=== PATIENT | male | born 1955 | race Caucasian/White ===

== ENCOUNTER 2016-08-12 06:06 | Emergency (ER) | payer BC, OTHER ==
[~2016-08-12] VITALS: Ht 172.7 cm; Wt 92.0 kg
[~2016-08-12 06:06] MED LIST: AMLO-512 PO; PARI1CAP PO
[2016-08-12] MEDS ORDERED: LOSA50TA37 PO (06:13)
[2016-08-12 06:22] LABS: GLUCOSE,POINT OF CARE 100 MG/DL (70-110)
[2016-08-12 06:33] VITALS: BP 150/90
== END 2016-08-12 06:46 | disposition home or self-care (01) ==
LOC: EMS 06:07
DX: S90.424A Blister (nonthermal), right lesser toe(s), initial encounter (principal); I12.0 Hypertensive chronic kidney disease with stage 5 chronic kidney disease or end stage renal disease; E11.22 Type 2 diabetes mellitus with diabetic chronic kidney disease; N18.6 End stage renal disease; Z99.2 Dependence on renal dialysis; X58.XXXA Exposure to other specified factors, initial encounter; Y93.89 Activity, other specified; Y92.89 Other specified places as the place of occurrence of the external cause; Y99.8 Other external cause status
CPT/HCPCS: 82948; 82962; 99282

== ENCOUNTER 2017-02-01 05:28 | Inpatient (IN) | payer BC, OTHER ==
[~2017-02-01] VITALS: Ht 167.6 cm; Wt 83.5 kg
[~2017-02-01 05:28] MED LIST changes: -AMLO-512 PO; +LOSA50TA37 PO; -PARI1CAP PO
[2017-02-01 05:48] LABS: GLUCOSE,POINT OF CARE 93 MG/DL (70-110)
[2017-02-01] MEDS ORDERED: NITROGLYCERIN 0.4 MG SUBLINGUAL TABLET #25 SL ONE (06:00)
[2017-02-01] MEDS ORDERED: ASPIRIN 325 MG TABLET PO ONE (06:00)
[2017-02-01 06:18] LABS: BASOPHILS # (AUTO) 0.08 K/uL (0.00-0.20); BASOPHILS % (AUTO) 0.9 % (0.0-2.0); EOSINOPHILS # (AUTO) 0.23 K/uL (0.00-0.70); EOSINOPHILS % (AUTO) 2.53 % (1.0-6.0); HEMATOCRIT 28.2 % (41-53); HEMOGLOBIN 9.4 g/dL (13.5-17.5); LYMPHOCYTES # (AUTO) 1.3 K/uL (1.0-4.8); LYMPHOCYTES % (AUTO) 13.5 % (22.0-44.0); MEAN CORPUSCULAR HEMOGLOBIN 29.7 pg (26.0-34.0); MEAN CORPUSCULAR HGB CONC 33.3 G/dL (31.0-37.0); MEAN CORPUSCULAR VOLUME 89 fL (80-100); MONOCYTES # (AUTO) 0.5 K/uL (0.1-1.0); MONOCYTES % (AUTO) 5.6 % (2.0-9.0); NEUTROPHILS # (AUTO) 7.2 K/uL (1.8-7.7); NEUTROPHILS % (AUTO) 77.5 % (40.0-70.0); PLATELET COUNT (AUTO) 206 K/uL (150-450); RED BLOOD CELL COUNT(AUTO) 3.17 MIL/uL (4.50-5.90); RED CELL DISTRIBUTION WIDTH 15.8 % (11.5-14.5); WHITE BLOOD COUNT (AUTO) 9.2 K/uL (4.5-11.0)
[2017-02-01 06:25] LABS: INR 1.1 (0.9-1.1); PROTHROMBIN TIME 11.2 SEC (9.4-11.6)
[2017-02-01] MEDS ORDERED: HEPARIN SODIUM,PORCINE 5,000 UNITS/ML VIAL IVP ONE (06:30)
[2017-02-01] MEDS ORDERED: NITROGLYCERIN 2% (1 GM=INCH) PACKET TP ONE (06:30)
[2017-02-01] MEDS ORDERED: HEPARIN SODIUM 25000 UNITS/D5W 250 ML IV PRN (06:30)
[2017-02-01] MEDS ORDERED: HEPARIN SODIUM,PORCINE 5,000 UNITS/ML VIAL IVP PRN ×2 (06:30)
[2017-02-01 06:51] LABS: ALANINE AMINOTRANSFERASE 17 U/L (12-78); ALBUMIN 3.4 g/dL (3.4-5.0); ANION GAP 23 mmol/L (8-16); ASPARTATE AMINOTRANSFERASE 13 U/L (15-37); BILIRUBIN,TOTAL 0.4 mg/dL (0.1-1.0); CALCIUM, TOTAL 7.4 mg/dL (8.8-10.5); CARBON DIOXIDE 18 mmol/L (22-29); CHLORIDE 99 mmol/L (98-107); CREATINE KINASE MB 3.3 ng/mL (0-5); CREATINE KINASE, TOTAL 233 U/L (39-308); CREATININE 19.92 mg/dL (0.60-1.30); GLOMERULAR FILTR. RATE CALC 2 mL/min (>60); POTASSIUM 4.9 mmol/L (3.5-5.1); SODIUM SERUM 140 mmol/L (136-145); TOTAL PROTEIN, SERUM 8.3 g/dL (6.4-8.2)
[2017-02-01 06:55] LABS: UREA NITROGEN, BLOOD 121 mg/dL (7-18)
[2017-02-01] MEDS ORDERED: AZITHROMYCIN 500 MG/NS 250 ML IV ONE (07:15)
[2017-02-01] MEDS ORDERED: CefTRIAXone 1 GM/DEXTROSE 50 ML IV ONE (07:15)
[2017-02-01] MEDS ORDERED: ONDANSETRON HCL 4 MG/2 ML VIAL IVP PRN ×2 (07:45→11:30)
[2017-02-01] MEDS ORDERED: ACETAMINOPHEN 325 MG TABLET PO PRN ×2 (07:45→11:30)
[2017-02-01] MEDS ORDERED: OXYGEN THERAPY IH SCH (08:00)
[2017-02-01 09:34] VITALS: BP 158/82
[2017-02-01] MEDS ORDERED: MANNITOL 25%-12.5 GM/50 ML VIAL IVP PRN (10:15)
[2017-02-01] MEDS ORDERED: PNEUMOCOCCAL VACCINE POLYVALENT 0.5 ML VIAL [PPSV23] IM ONE (10:30)
[2017-02-01] MEDS ORDERED: INFLUENZA VIRUS VACCINE QVS 2017-18 (3YR+)/PF 60 MCG/0.5 ML SYRINGE IM ONE (10:30)
[2017-02-01] MEDS ORDERED: MORPHINE SULFATE 2 MG/ML SYRINGE IVP PRN (11:30)
[2017-02-01] MEDS ORDERED: HYDROCODONE/ACETAMINOPHEN 5-325 MG TABLET PO PRN (11:30)
[2017-02-01] MEDS ORDERED: BISACODYL 10 MG RECTAL RECTAL SUPPOSITORY PR PRN (11:30)
[2017-02-01] MEDS ORDERED: ZOLPIDEM TARTRATE 5 MG TABLET PO PRN (11:30)
[2017-02-01] MEDS ORDERED: MAGNESIUM HYDROXIDE SUSPENSION 30 ML UDCUP PO PRN (11:30)
[2017-02-01 12:30] LABS: ALBUMIN 3.2 g/dL (3.4-5.0); CALCIUM, TOTAL 7.1 mg/dL (8.8-10.5); CREATININE 19.79 mg/dL (0.60-1.30); PHOSPHORUS 8.5 mg/dL (2.5-4.9); POTASSIUM 5.6 mmol/L (3.5-5.1)
[2017-02-01] MEDS ORDERED: NITROGLYCERIN 50 MG/D5% WATER 0 ML ONE (13:48)
[2017-02-01] MEDS ORDERED: VERAPAMIL HCL 2.5 MG/ML 2 ML VIAL ONE (13:48)
[2017-02-01] MEDS ORDERED: HEPARIN SODIUM,PORCINE 1,000 UNITS/ML 10 ML VIAL ONE (13:48)
[2017-02-01] MEDS ORDERED: LIDOCAINE HCL/PF 1% 30 ML VIAL ONE (13:49)
[2017-02-01] MEDS ORDERED: IOHEXOL 300 MG/ML 150 ML VIAL ONE (13:49)
[2017-02-01] MEDS ORDERED: SODIUM BICARBONATE 50 MEQ/50 ML VIAL ONE (13:49)
[2017-02-01] MEDS ORDERED: IOHEXOL 300 MG/ML 100 ML VIAL ONE (13:49)
[2017-02-01] MEDS ORDERED: 0.9% SODIUM CHLORIDE 10 ML SYRINGE IVP ONE (13:49)
[2017-02-01] MEDS ORDERED: HEPARIN SODIUM 1000 UNITS/NS 1,000 ML ONE (13:49)
[2017-02-01 14:40] VITALS: BP 217/87
[2017-02-01] MEDS ORDERED: HydrALAZINE HCL 20 MG/ML VIAL ONE (14:52)
[2017-02-01] MEDS ORDERED: HEPARIN SODIUM 2,000 UNITS in HEPARIN SODIUM 1000 UNITS/NS 1,000 ML IARTER ONE (14:55)
[2017-02-01] MEDS ORDERED: SODIUM CHLORIDE 0.9% 500 ML IV ONE (14:55)
[2017-02-01] MEDS ORDERED: IOHEXOL 300 MG/ML 150 ML VIAL IARTER ONE (15:00)
[2017-02-01] MEDS ORDERED: LIDOCAINE 1% 30 ML/SOD BICARB 8.4% 4 ML SQ ONE (15:00)
[2017-02-01] MEDS ORDERED: HydrALAZINE HCL 20 MG/ML VIAL IVP ONE (15:00)
[2017-02-01 15:25] VITALS: BP 188/68
[2017-02-01 16:00] VITALS: BP 188/68
[2017-02-01] MEDS: NITROGLYCERIN 2% (1 GM=INCH) PACKET TP SCH (16:00)
[2017-02-01] MEDS: AmLODIPine BESYLATE 5 MG TABLET PO SCH (17:03)
[2017-02-01] MEDS ORDERED: SODIUM CHLORIDE 0.9% 1,000 ML IV ONE (19:30)
[2017-02-01 19:55] VITALS: BP 150/81
[2017-02-01] MEDS: CARVEDILOL 12.5 MG TABLET PO SCH (20:09)
[2017-02-01] MEDS: DOCUSATE SODIUM 100 MG CAPSULE PO SCH (20:09)
[2017-02-01 23:28] VITALS: BP 126/71
[2017-02-02] VITALS (7 sets, daily range): BP systolic 125–146; BP diastolic 71–76
[2017-02-02] MEDS: HEPARIN SODIUM,PORCINE 5,000 UNITS/ML VIAL SQ SCH ×4 (00:14→23:38)
[2017-02-02] MEDS: NITROGLYCERIN 2% (1 GM=INCH) PACKET TP SCH ×4 (00:15→23:38)
[2017-02-02 06:47] LABS: BASOPHILS % (AUTO) 0.8 % (0.0-2.0); EOSINOPHILS % (AUTO) 1.8 % (1.0-6.0); MEAN CORPUSCULAR HEMOGLOBIN 30.5 pg (26.0-34.0); MEAN CORPUSCULAR HGB CONC 34.4 G/dL (31.0-37.0); MEAN CORPUSCULAR VOLUME 89 fL (80-100); MONOCYTES # (AUTO) 0.5 K/uL (0.1-1.0); MONOCYTES % (AUTO) 8.2 % (2.0-9.0); NEUTROPHILS # (AUTO) 4.5 K/uL (1.8-7.7); NEUTROPHILS % (AUTO) 73.2 % (40.0-70.0); PLATELET COUNT (AUTO) 202 K/uL (150-450); RED BLOOD CELL COUNT(AUTO) 2.94 MIL/uL (4.50-5.90); RED CELL DISTRIBUTION WIDTH 15.7 % (11.5-14.5); WHITE BLOOD COUNT (AUTO) 6.1 K/uL (4.5-11.0)
[2017-02-02] MEDS ORDERED: SODIUM CHLORIDE 0.9% 1,000 ML IV ONE (07:21)
[2017-02-02 07:45] LABS: CALCIUM, TOTAL 7.4 mg/dL (8.8-10.5); CHOL/HDL RATIO 4.8 (4.2-7.3); CREATININE 13.32 mg/dL (0.60-1.30)
[2017-02-02] MEDS: PANTOPRAZOLE SODIUM 40 MG DR TABLET PO SCH (10:57)
[2017-02-02] MEDS: CARVEDILOL 12.5 MG TABLET PO SCH ×2 (10:58→21:04)
[2017-02-02] MEDS: ASPIRIN 81 MG CHEWABLE TABLET PO SCH (10:58)
[2017-02-02] MEDS: EPOETIN ALFA 10,000 UNITS/ML VIAL SQ SCH (10:59)
[2017-02-02] MEDS: DOCUSATE SODIUM 100 MG CAPSULE PO SCH ×2 (11:10→21:04)
[2017-02-02] MEDS: AmLODIPine BESYLATE 5 MG TABLET PO SCH (14:45)
[2017-02-03 04:48] VITALS: BP 121/65
[2017-02-03 06:27] LABS: BASOPHILS % (AUTO) 0.9 % (0.0-2.0); EOSINOPHILS % (AUTO) 3.7 % (1.0-6.0); HEMATOCRIT 26.8 % (41-53); HEMOGLOBIN 9.2 g/dL (13.5-17.5); LYMPHOCYTES # (AUTO) 1.4 K/uL (1.0-4.8); LYMPHOCYTES % (AUTO) 23.3 % (22.0-44.0); MEAN CORPUSCULAR HEMOGLOBIN 30.8 pg (26.0-34.0); MEAN CORPUSCULAR HGB CONC 34.4 G/dL (31.0-37.0); MEAN CORPUSCULAR VOLUME 90 fL (80-100); MONOCYTES # (AUTO) 0.7 K/uL (0.1-1.0); MONOCYTES % (AUTO) 11.7 % (2.0-9.0); NEUTROPHILS # (AUTO) 3.7 K/uL (1.8-7.7); NEUTROPHILS % (AUTO) 60.4 % (40.0-70.0); PLATELET COUNT (AUTO) 208 K/uL (150-450); RED BLOOD CELL COUNT(AUTO) 2.99 MIL/uL (4.50-5.90); RED CELL DISTRIBUTION WIDTH 15.9 % (11.5-14.5); WHITE BLOOD COUNT (AUTO) 6.1 K/uL (4.5-11.0)
[2017-02-03 06:50] LABS: CALCIUM, TOTAL 7.9 mg/dL (8.8-10.5); CREATININE 10.19 mg/dL (0.60-1.30); POTASSIUM 4.6 mmol/L (3.5-5.1)
[2017-02-03 07:24] VITALS: BP_SYST 116; BP_SYST 148; BP_DIAS 65; BP_DIAS 76
[2017-02-03] MEDS: CARVEDILOL 12.5 MG TABLET PO SCH ×2 (08:26→21:30)
[2017-02-03] MEDS: HEPARIN SODIUM,PORCINE 5,000 UNITS/ML VIAL SQ SCH ×3 (08:26→23:46)
[2017-02-03] MEDS: ASPIRIN 81 MG CHEWABLE TABLET PO SCH (08:26)
[2017-02-03] MEDS: AmLODIPine BESYLATE 5 MG TABLET PO SCH (08:26)
[2017-02-03] MEDS: DOCUSATE SODIUM 100 MG CAPSULE PO SCH ×2 (08:27→21:30)
[2017-02-03] MEDS: NITROGLYCERIN 2% (1 GM=INCH) PACKET TP SCH ×3 (08:31→23:47)
[2017-02-03] MEDS: PANTOPRAZOLE SODIUM 40 MG DR TABLET PO SCH (09:41)
[2017-02-03 11:41] VITALS: BP 134/74
[2017-02-03 15:33] VITALS: BP 138/84
[2017-02-03 19:15] VITALS: BP 156/75
[2017-02-04] VITALS (8 sets, daily range): BP systolic 93–138; BP diastolic 58–79
[2017-02-04 06:35] LABS: HEMATOCRIT 26.9 % (41-53); HEMOGLOBIN 9.2 g/dL (13.5-17.5); LYMPHOCYTES # (AUTO) 1.5 K/uL (1.0-4.8); LYMPHOCYTES % (AUTO) 25.5 % (22.0-44.0); MEAN CORPUSCULAR HEMOGLOBIN 30.6 pg (26.0-34.0); MEAN CORPUSCULAR HGB CONC 34.2 G/dL (31.0-37.0); MEAN CORPUSCULAR VOLUME 90 fL (80-100); MONOCYTES # (AUTO) 0.7 K/uL (0.1-1.0); MONOCYTES % (AUTO) 11.3 % (2.0-9.0); NEUTROPHILS # (AUTO) 3.4 K/uL (1.8-7.7); NEUTROPHILS % (AUTO) 57.2 % (40.0-70.0); PLATELET COUNT (AUTO) 195 K/uL (150-450); RED BLOOD CELL COUNT(AUTO) 3.01 MIL/uL (4.50-5.90); RED CELL DISTRIBUTION WIDTH 15.3 % (11.5-14.5); WHITE BLOOD COUNT (AUTO) 5.9 K/uL (4.5-11.0)
[2017-02-04 07:00] LABS: CREATININE 7.93 mg/dL (0.60-1.30); POTASSIUM 4.1 mmol/L (3.5-5.1)
[2017-02-04] MEDS: HEPARIN SODIUM,PORCINE 5,000 UNITS/ML VIAL SQ SCH ×2 (10:34→16:43)
[2017-02-04] MEDS: CARVEDILOL 12.5 MG TABLET PO SCH ×2 (10:49→20:22)
[2017-02-04] MEDS: DOCUSATE SODIUM 100 MG CAPSULE PO SCH ×2 (10:49→20:22)
[2017-02-04] MEDS: NITROGLYCERIN 2% (1 GM=INCH) PACKET TP SCH ×2 (10:49→16:44)
[2017-02-04] MEDS: EPOETIN ALFA 10,000 UNITS/ML VIAL SQ SCH (10:49)
[2017-02-04] MEDS: PANTOPRAZOLE SODIUM 40 MG DR TABLET PO SCH (10:49)
[2017-02-04] MEDS: AmLODIPine BESYLATE 5 MG TABLET PO SCH (10:49)
[2017-02-04] MEDS: ASPIRIN 81 MG CHEWABLE TABLET PO SCH (10:49)
[2017-02-05] MEDS: HEPARIN SODIUM,PORCINE 5,000 UNITS/ML VIAL SQ SCH ×3 (00:48→16:21)
[2017-02-05] MEDS: NITROGLYCERIN 2% (1 GM=INCH) PACKET TP SCH ×3 (00:48→16:21)
[2017-02-05 04:25] VITALS: BP 101/59
[2017-02-05 07:13] VITALS: BP 109/55
[2017-02-05] MEDS: ASPIRIN 81 MG CHEWABLE TABLET PO SCH (07:54)
[2017-02-05] MEDS: DOCUSATE SODIUM 100 MG CAPSULE PO SCH ×2 (07:55→20:53)
[2017-02-05] MEDS: PANTOPRAZOLE SODIUM 40 MG DR TABLET PO SCH (07:55)
[2017-02-05] MEDS: CARVEDILOL 12.5 MG TABLET PO SCH ×2 (08:00→20:53)
[2017-02-05] MEDS: AmLODIPine BESYLATE 5 MG TABLET PO SCH (08:00)
[2017-02-05 11:14] VITALS: BP 136/72
[2017-02-05 15:54] VITALS: BP 130/67
[2017-02-05] MEDS: VITAMIN B COMP/VIT C/FOLIC ACID CAPSULE PO SCH (16:21)
[2017-02-05 20:08] VITALS: BP 120/61
[2017-02-06 00:25] VITALS: BP 137/75
[2017-02-06] MEDS: NITROGLYCERIN 2% (1 GM=INCH) PACKET TP SCH ×3 (00:44→16:00)
[2017-02-06] MEDS: HEPARIN SODIUM,PORCINE 5,000 UNITS/ML VIAL SQ SCH ×3 (00:44→16:00)
[2017-02-06 04:28] VITALS: BP 133/71
[2017-02-06] MEDS ORDERED: SODIUM CHLORIDE 0.9% 2,000 ML IV ONE (06:17)
[2017-02-06 07:15] VITALS: BP 128/64
[2017-02-06] MEDS: DOCUSATE SODIUM 100 MG CAPSULE PO SCH ×2 (08:13→20:17)
[2017-02-06] MEDS: ASPIRIN 81 MG CHEWABLE TABLET PO SCH (08:13)
[2017-02-06] MEDS: VITAMIN B COMP/VIT C/FOLIC ACID CAPSULE PO SCH (08:13)
[2017-02-06] MEDS: PANTOPRAZOLE SODIUM 40 MG DR TABLET PO SCH (08:13)
[2017-02-06] MEDS: AmLODIPine BESYLATE 5 MG TABLET PO SCH (10:12)
[2017-02-06] MEDS: CARVEDILOL 12.5 MG TABLET PO SCH ×2 (10:12→20:17)
[2017-02-06 11:01] VITALS: BP 128/60
[2017-02-06 15:56] VITALS: BP 134/68
[2017-02-06 19:41] VITALS: BP 136/64
== END 2017-02-06 21:50 | disposition short-term general hospital (02) | DRG 192 ==
LOC: EMS 05:29 → 5S 07:39
PROVIDERS: ADMIT Internal Medicine; ATTEND Internal Medicine
PROC: 4A023N7 Measurement of Cardiac Sampling and Pressure, Left Heart, Percutaneous Approach (ICD-10-PCS; principal; 2017-02-01)
PROC: B2111ZZ Fluoroscopy of Multiple Coronary Arteries using Low Osmolar Contrast (ICD-10-PCS; 2017-02-01)
PROC: B2151ZZ Fluoroscopy of Left Heart using Low Osmolar Contrast (ICD-10-PCS; 2017-02-01)
PROC: 5A1D70Z Performance of Urinary Filtration, Intermittent, Less than 6 Hours Per Day (ICD-10-PCS; 2017-02-01)
PROC: 5A1D70Z Performance of Urinary Filtration, Intermittent, Less than 6 Hours Per Day (ICD-10-PCS; 2017-02-03)
PROC: 5A1D70Z Performance of Urinary Filtration, Intermittent, Less than 6 Hours Per Day (ICD-10-PCS; 2017-02-04)
PROC: 5A1D70Z Performance of Urinary Filtration, Intermittent, Less than 6 Hours Per Day (ICD-10-PCS; 2017-02-06)
DX: I50.33 Acute on chronic diastolic (congestive) heart failure (principal); I21.4 Non-ST elevation (NSTEMI) myocardial infarction; J18.9 Pneumonia, unspecified organism; N25.81 Secondary hyperparathyroidism of renal origin; N18.6 End stage renal disease; E11.22 Type 2 diabetes mellitus with diabetic chronic kidney disease; Z95.1 Presence of aortocoronary bypass graft; I25.110 Atherosclerotic heart disease of native coronary artery with unstable angina pectoris; I13.2 Hypertensive heart and chronic kidney disease with heart failure and with stage 5 chronic kidney disease, or end stage renal disease; D63.8 Anemia in other chronic diseases classified elsewhere; E78.5 Hyperlipidemia, unspecified; D63.1 Anemia in chronic kidney disease; I25.5 Ischemic cardiomyopathy; Z91.19 Patient's noncompliance with other medical treatment and regimen; Z99.2 Dependence on renal dialysis; I25.2 Old myocardial infarction; Z28.21 Immunization not carried out because of patient refusal
CPT/HCPCS: 82962; 87040; 87081; 87340; 90471; 90935; 93005; 93306; 96365; 96366; 96375; 99291; J0360; J0456; J0696; J0885; J1644; J3490; J7030; Q9967

== ENCOUNTER 2017-11-13 11:18 | Emergency (ER) | payer OTHER ==
[~2017-11-13] VITALS: Ht 172.7 cm; Wt 90.0 kg
[~2017-11-13 11:18] MED LIST changes: +LOSA50TA25 PO; -LOSA50TA37 PO
[2017-11-13 11:34] LABS: GLUCOSE,POINT OF CARE 157 MG/DL (70-110)
[2017-11-13 16:32] VITALS: BP 169/89
== END 2017-11-13 16:33 | disposition home or self-care (01) ==
LOC: EMS 11:19
DX: S52.571A Other intraarticular fracture of lower end of right radius, initial encounter for closed fracture (principal); I12.0 Hypertensive chronic kidney disease with stage 5 chronic kidney disease or end stage renal disease; E11.22 Type 2 diabetes mellitus with diabetic chronic kidney disease; N18.6 End stage renal disease; Z99.2 Dependence on renal dialysis; W01.0XXA Fall on same level from slipping, tripping and stumbling without subsequent striking against object, initial encounter; Y93.89 Activity, other specified; Y92.89 Other specified places as the place of occurrence of the external cause; Y99.8 Other external cause status
CPT/HCPCS: 99284

== ENCOUNTER 2018-09-11 09:32 | Inpatient (IN) | payer OTHER ==
[~2018-09-11] VITALS: Ht 175.3 cm; Wt 91.8 kg
[~2018-09-11 09:32] MED LIST changes: -LOSA50TA25 PO; +LOSA50TA64 PO
[2018-09-11] MEDS ORDERED: SEVEC800 PO (09:43)
[2018-09-11] MEDS ORDERED: AMLO2.5T4 PO (09:43)
[2018-09-11] MEDS ORDERED: ASPI81 PO (09:43)
[2018-09-11 09:44] LABS: GLUCOSE,POINT OF CARE 90 MG/DL (70-110)
[2018-09-11 10:42] LABS: BASOPHILS % (AUTO) 1.1 % (0.0-2.0); EOSINOPHILS % (AUTO) 1.5 % (1.0-6.0); HEMATOCRIT 36.2 % (41-53); HEMOGLOBIN 11.7 g/dL (13.5-17.5); LYMPHOCYTES # (AUTO) 0.9 K/uL (1.0-4.8); LYMPHOCYTES % (AUTO) 11.2 % (22.0-44.0); MEAN CORPUSCULAR HEMOGLOBIN 30.7 pg (26.0-34.0); MEAN CORPUSCULAR HGB CONC 32.3 G/dL (31.0-37.0); MEAN CORPUSCULAR VOLUME 95 fL (80-100); MONOCYTES # (AUTO) 0.6 K/uL (0.1-1.0); MONOCYTES % (AUTO) 6.7 % (2.0-9.0); NEUTROPHILS # (AUTO) 6.6 K/uL (1.8-7.7); NEUTROPHILS % (AUTO) 79.5 % (40.0-70.0); PLATELET COUNT (AUTO) 221 K/uL (150-450); RED BLOOD CELL COUNT(AUTO) 3.81 MIL/uL (4.50-5.90); RED CELL DISTRIBUTION WIDTH 14.7 % (11.5-14.5)
[2018-09-11 10:56] LABS: PROTHROMBIN TIME 10.7 SEC (9.4-11.6)
[2018-09-11 11:05] LABS: ALBUMIN 3.6 g/dL (3.4-5.0); BILIRUBIN,TOTAL 0.6 mg/dL (0.1-1.0); CALCIUM, TOTAL 8.7 mg/dL (8.8-10.5); CREATININE 15.18 mg/dL (0.60-1.30); TOTAL PROTEIN, SERUM 7.7 g/dL (6.4-8.2)
[2018-09-11 11:06] LABS: POTASSIUM 6.2 mmol/L (3.5-5.1)
[2018-09-11] MEDS ORDERED: ALBUTEROL SULFATE 5 MG/ML 20 ML NEB SOLN [BULK] NEB ONE (11:15)
[2018-09-11] MEDS ORDERED: BUMETANIDE 0.25 MG/ML 4 ML VIAL IVP ONE (11:15)
[2018-09-11] MEDS ORDERED: INSULIN REGULAR, HUMAN 100 UNITS/ML IVP ONE (11:15)
[2018-09-11] MEDS ORDERED: SODIUM BICARBONATE 50 MEQ in SODIUM CHLORIDE 0.9% 1,000 ML IV ONE (11:15)
[2018-09-11] MEDS ORDERED: ASPIRIN 325 MG TABLET PO ONE (11:15)
[2018-09-11] MEDS ORDERED: DEXTROSE 50%-WATER 25 GM/50 ML SYRINGE IVP ONE (11:15)
[2018-09-11] MEDS ORDERED: SODIUM BICARBONATE [ADULT] 8.4% 50 MEQ/50 ML SYRINGE IVP ONE (11:30)
[2018-09-11 11:35] LABS: GLUCOSE,POINT OF CARE 90 MG/DL (70-110)
[2018-09-11] MEDS ORDERED: 0.9% SODIUM CHLORIDE 15 ML NEB SOLUTION NEB ONE (11:38)
[2018-09-11] MEDS ORDERED: HEPARIN SODIUM 25000 UNITS/D5W 250 ML IV PRN (11:43)
[2018-09-11] MEDS ORDERED: HEPARIN SODIUM,PORCINE 5,000 UNITS/ML VIAL IVP ONE (11:45)
[2018-09-11] MEDS ORDERED: HEPARIN SODIUM,PORCINE 5,000 UNITS/ML VIAL IVP PRN ×2 (11:45)
[2018-09-11] MEDS ORDERED: AMLO10TA7 PO (11:59)
[2018-09-11] MEDS ORDERED: MANNITOL 25%-12.5 GM/50 ML VIAL IVP ONE (12:00)
[2018-09-11] MEDS ORDERED: METOPROLOL TARTRATE 25 MG TABLET PO SCH (12:15)
[2018-09-11] MEDS ORDERED: BISACODYL 10 MG RECTAL RECTAL SUPPOSITORY PR PRN (12:15)
[2018-09-11] MEDS ORDERED: ACETAMINOPHEN 325 MG TABLET PO PRN ×2 (12:15)
[2018-09-11] MEDS ORDERED: ONDANSETRON HCL 4 MG/2 ML VIAL IVP PRN (12:15)
[2018-09-11] MEDS ORDERED: ATORVASTATIN CALCIUM 20 MG TABLET PO SCH (12:15)
[2018-09-11] MEDS ORDERED: 0.9% SODIUM CHLORIDE 10 ML SYRINGE IVP PRN (12:15)
[2018-09-11] MEDS ORDERED: MORPHINE SULFATE 4 MG/ML SYRINGE IVP PRN (12:15)
[2018-09-11] MEDS: OXYGEN THERAPY IH SCH ×2 (12:35→20:33)
[2018-09-11 12:46] LABS: EOSINOPHILS % (AUTO) 0.9 % (1.0-6.0); HEMATOCRIT 34.9 % (41-53); HEMOGLOBIN 11.4 g/dL (13.5-17.5); LYMPHOCYTES % (AUTO) 21.7 % (22.0-44.0); MEAN CORPUSCULAR HGB CONC 32.6 G/dL (31.0-37.0); MEAN CORPUSCULAR VOLUME 95 fL (80-100); MONOCYTES # (AUTO) 0.8 K/uL (0.1-1.0); MONOCYTES % (AUTO) 8.2 % (2.0-9.0); NEUTROPHILS # (AUTO) 6.3 K/uL (1.8-7.7); NEUTROPHILS % (AUTO) 68.2 % (40.0-70.0); PLATELET COUNT (AUTO) 192 K/uL (150-450); RED BLOOD CELL COUNT(AUTO) 3.66 MIL/uL (4.50-5.90); RED CELL DISTRIBUTION WIDTH 14.9 % (11.5-14.5)
[2018-09-11] MEDS ORDERED: SODIUM BICARBONATE 650 MG TABLET PO ONE (13:00)
[2018-09-11 13:25] LABS: GLUCOSE,POINT OF CARE 198 MG/DL (70-110)
[2018-09-11] MEDS ORDERED: DEXTROSE 50%-WATER 25 GM/50 ML SYRINGE IVP PRN (14:45)
[2018-09-11 17:23] LABS: CALCIUM, TOTAL 8.3 mg/dL (8.8-10.5); CREATININE 15.31 mg/dL (0.60-1.30); POTASSIUM 4.8 mmol/L (3.5-5.1)
[2018-09-11 17:29] LABS: ALBUMIN 3.4 g/dL (3.4-5.0); BILIRUBIN,TOTAL 0.5 mg/dL (0.1-1.0); TOTAL PROTEIN, SERUM 7.3 g/dL (6.4-8.2)
[2018-09-11] MEDS: NITROGLYCERIN 2% (1 GM=INCH) PACKET TP SCH ×2 (18:15→23:22)
[2018-09-11 18:37] LABS: PROTHROMBIN TIME 10.7 SEC (9.4-11.6)
[2018-09-11 21:30] VITALS: BP 117/68
[2018-09-11] MEDS: INSULIN LISPRO 100 UNITS/ML SQ PRN (21:33)
[2018-09-11] MEDS: METOPROLOL TARTRATE 25 MG TABLET PO SCH (21:58)
[2018-09-11] MEDS: DOCUSATE SODIUM 100 MG CAPSULE PO SCH (21:58)
[2018-09-11 23:15] LABS: GLUCOSE,POINT OF CARE 196 MG/DL (70-110)
[2018-09-12] VITALS (16 sets, daily range): BP systolic 117–170; BP diastolic 54–90
[2018-09-12 04:47] LABS: BASOPHILS % (AUTO) 0.8 % (0.0-2.0); EOSINOPHILS % (AUTO) 0.7 % (1.0-6.0); HEMATOCRIT 31.4 % (41-53); HEMOGLOBIN 10.5 g/dL (13.5-17.5); LYMPHOCYTES # (AUTO) 1.1 K/uL (1.0-4.8); LYMPHOCYTES % (AUTO) 14.4 % (22.0-44.0); MEAN CORPUSCULAR HEMOGLOBIN 31.9 pg (26.0-34.0); MEAN CORPUSCULAR HGB CONC 33.4 G/dL (31.0-37.0); MEAN CORPUSCULAR VOLUME 96 fL (80-100); MONOCYTES # (AUTO) 0.7 K/uL (0.1-1.0); MONOCYTES % (AUTO) 8.7 % (2.0-9.0); NEUTROPHILS # (AUTO) 5.7 K/uL (1.8-7.7); NEUTROPHILS % (AUTO) 75.4 % (40.0-70.0); PLATELET COUNT (AUTO) 186 K/uL (150-450); RED BLOOD CELL COUNT(AUTO) 3.28 MIL/uL (4.50-5.90); RED CELL DISTRIBUTION WIDTH 15.2 % (11.5-14.5)
[2018-09-12 05:10] LABS: BILIRUBIN,TOTAL 0.4 mg/dL (0.1-1.0); CALCIUM, TOTAL 6.8 mg/dL (8.8-10.5); CREATININE 13.25 mg/dL (0.60-1.30); MAGNESIUM 2.6 mg/dL (1.80-2.40); POTASSIUM 5.4 mmol/L (3.5-5.1); TOTAL PROTEIN, SERUM 7.1 g/dL (6.4-8.2)
[2018-09-12] MEDS: NITROGLYCERIN 2% (1 GM=INCH) PACKET TP SCH ×3 (05:16→17:59)
[2018-09-12] MEDS ORDERED: HEPARIN SODIUM,PORCINE 5,000 UNITS/ML VIAL IVP ONE (05:30)
[2018-09-12] MEDS ORDERED: HEPARIN SODIUM,PORCINE 5,000 UNITS/ML VIAL IVP PRN (05:30)
[2018-09-12] MEDS: INSULIN LISPRO 100 UNITS/ML SQ PRN (05:31)
[2018-09-12] MEDS: HEPARIN SODIUM 25000 UNITS/D5W 250 ML IV PRN (05:53)
[2018-09-12 06:09] LABS: GLUCOSE,POINT OF CARE 98 MG/DL (70-110)
[2018-09-12] MEDS: HEPARIN SODIUM,PORCINE 5,000 UNITS/ML VIAL IVP PRN (07:30)
[2018-09-12] MEDS ORDERED: NITROGLYCERIN 50 MG/D5% WATER 250 ML IV PRN ×2 (08:11→12:43)
[2018-09-12] MEDS: ATORVASTATIN CALCIUM 40 MG TABLET PO SCH (08:57)
[2018-09-12] MEDS: ASPIRIN 81 MG EC TABLET PO SCH (08:57)
[2018-09-12] MEDS: METOPROLOL TARTRATE 25 MG TABLET PO SCH ×2 (09:00→20:50)
[2018-09-12] MEDS: DOCUSATE SODIUM 100 MG CAPSULE PO SCH ×2 (09:00→20:50)
[2018-09-12] MEDS: FAMOTIDINE 20 MG TABLET PO SCH (09:00)
[2018-09-12] MEDS ORDERED: LIDOCAINE/PF 1% 30 ML VIAL ONE (09:26)
[2018-09-12] MEDS ORDERED: IOHEXOL 300 MG/ML 150 ML VIAL ONE (09:26)
[2018-09-12] MEDS ORDERED: SODIUM BICARBONATE 50 MEQ/50 ML VIAL ONE (09:26)
[2018-09-12] MEDS ORDERED: HEPARIN SODIUM 1000 UNITS/NS 1,000 ML ONE (09:27)
[2018-09-12] MEDS ORDERED: FentaNYL CITRATE-PF 100 MCG/2 ML VIAL ONE (11:46)
[2018-09-12] MEDS ORDERED: MIDAZOLAM HCL 2 MG/2 ML VIAL ONE (11:47)
[2018-09-12] MEDS ORDERED: HEPARIN SODIUM 1000 UNITS/NS 1,000 ML IARTER ONE (11:53)
[2018-09-12] MEDS ORDERED: SODIUM CHLORIDE 0.9% 500 ML IV ONE (11:53)
[2018-09-12] MEDS ORDERED: IOHEXOL 300 MG/ML 100 ML VIAL ONE (11:57)
[2018-09-12] MEDS ORDERED: MIDAZOLAM HCL 2 MG/2 ML VIAL IVP ONE (12:00)
[2018-09-12] MEDS ORDERED: LIDOCAINE 1% 30 ML/SOD BICARB 8.4% 4 ML SQ ONE (12:00)
[2018-09-12] MEDS ORDERED: IOHEXOL 300 MG/ML 150 ML VIAL IARTER ONE (12:00)
[2018-09-12] MEDS ORDERED: FentaNYL CITRATE-PF 100 MCG/2 ML VIAL IVP ONE (12:00)
[2018-09-12] MEDS ORDERED: IOHEXOL 300 MG/ML 50 ML VIAL ONE (12:25)
[2018-09-12] MEDS ORDERED: SODIUM CHLORIDE 0.9% 1,000 ML IV ONE (13:52)
[2018-09-12] MEDS ORDERED: MANNITOL 25%-12.5 GM/50 ML VIAL IVP PRN (15:30)
[2018-09-12 18:50] LABS: GLUCOSE,POINT OF CARE 118 MG/DL (70-110)
[2018-09-12 18:50] LABS: GLUCOSE,POINT OF CARE 110 MG/DL (70-110)
[2018-09-12 21:44] LABS: GLUCOSE,POINT OF CARE 166 MG/DL (70-110)
[2018-09-13] VITALS (7 sets, daily range): BP systolic 112–146; BP diastolic 59–80
[2018-09-13] MEDS: NITROGLYCERIN 2% (1 GM=INCH) PACKET TP SCH ×4 (00:06→18:56)
[2018-09-13] MEDS: HEPARIN SODIUM,PORCINE 5,000 UNITS/ML VIAL IVP PRN (02:44)
[2018-09-13] MEDS: HEPARIN SODIUM 25000 UNITS/D5W 250 ML IV PRN (04:59)
[2018-09-13 05:04] LABS: EOSINOPHILS % (AUTO) 1.1 % (1.0-6.0); HEMATOCRIT 30.8 % (41-53); LYMPHOCYTES # (AUTO) 1.1 K/uL (1.0-4.8); LYMPHOCYTES % (AUTO) 16.7 % (22.0-44.0); MEAN CORPUSCULAR HEMOGLOBIN 31.3 pg (26.0-34.0); MEAN CORPUSCULAR HGB CONC 32.6 G/dL (31.0-37.0); MEAN CORPUSCULAR VOLUME 96 fL (80-100); MONOCYTES # (AUTO) 0.7 K/uL (0.1-1.0); MONOCYTES % (AUTO) 10.5 % (2.0-9.0); NEUTROPHILS # (AUTO) 4.8 K/uL (1.8-7.7); NEUTROPHILS % (AUTO) 70.7 % (40.0-70.0); PLATELET COUNT (AUTO) 175 K/uL (150-450); RED BLOOD CELL COUNT(AUTO) 3.21 MIL/uL (4.50-5.90); RED CELL DISTRIBUTION WIDTH 14.9 % (11.5-14.5)
[2018-09-13 05:19] LABS: ALBUMIN 2.8 g/dL (3.4-5.0); BILIRUBIN,TOTAL 0.6 mg/dL (0.1-1.0); CALCIUM, TOTAL 7.8 mg/dL (8.8-10.5); CREATININE 9.19 mg/dL (0.60-1.30); MAGNESIUM 2.1 mg/dL (1.80-2.40); POTASSIUM 4.9 mmol/L (3.5-5.1); TOTAL PROTEIN, SERUM 6.8 g/dL (6.4-8.2)
[2018-09-13 07:04] LABS: GLUCOSE,POINT OF CARE 101 MG/DL (70-110)
[2018-09-13] MEDS: DOCUSATE SODIUM 100 MG CAPSULE PO SCH ×2 (08:54→20:55)
[2018-09-13] MEDS: FAMOTIDINE 20 MG TABLET PO SCH (08:55)
[2018-09-13] MEDS: ATORVASTATIN CALCIUM 40 MG TABLET PO SCH (08:55)
[2018-09-13] MEDS: CARVEDILOL 6.25 MG TABLET PO SCH ×2 (08:55→20:55)
[2018-09-13] MEDS: ASPIRIN 81 MG EC TABLET PO SCH (08:55)
[2018-09-13] MEDS: TICAGRELOR 60 MG TABLET PO SCH ×2 (08:56→20:56)
[2018-09-13] MEDS: ISOSORB DINIT/HYDRALAZINE HCL 20-37.5 MG TABLET PO SCH ×3 (08:56→20:56)
[2018-09-13 18:39] LABS: GLUCOSE,POINT OF CARE 120 MG/DL (70-110)
[2018-09-13 20:04] LABS: GLUCOSE,POINT OF CARE 100 MG/DL (70-110)
[2018-09-13] MEDS: INSULIN LISPRO 100 UNITS/ML SQ PRN (21:10)
[2018-09-14] MEDS: NITROGLYCERIN 2% (1 GM=INCH) PACKET TP SCH ×2 (00:07→05:18)
[2018-09-14 06:45] LABS: BASOPHILS % (AUTO) 1.2 % (0.0-2.0); EOSINOPHILS % (AUTO) 4.1 % (1.0-6.0); HEMATOCRIT 31.5 % (41-53); HEMOGLOBIN 10.4 g/dL (13.5-17.5); LYMPHOCYTES # (AUTO) 1.3 K/uL (1.0-4.8); MEAN CORPUSCULAR HEMOGLOBIN 31.3 pg (26.0-34.0); MEAN CORPUSCULAR HGB CONC 32.9 G/dL (31.0-37.0); MEAN CORPUSCULAR VOLUME 95 fL (80-100); MONOCYTES # (AUTO) 0.6 K/uL (0.1-1.0); MONOCYTES % (AUTO) 10.7 % (2.0-9.0); NEUTROPHILS # (AUTO) 3.5 K/uL (1.8-7.7); PLATELET COUNT (AUTO) 165 K/uL (150-450); RED BLOOD CELL COUNT(AUTO) 3.31 MIL/uL (4.50-5.90); RED CELL DISTRIBUTION WIDTH 14.6 % (11.5-14.5)
[2018-09-14 07:00] LABS: ALBUMIN 2.8 g/dL (3.4-5.0); BILIRUBIN,TOTAL 0.6 mg/dL (0.1-1.0); CREATININE 7.17 mg/dL (0.60-1.30); MAGNESIUM 1.9 mg/dL (1.80-2.40); POTASSIUM 4.6 mmol/L (3.5-5.1)
[2018-09-14 07:19] LABS: CALCIUM, TOTAL 8.6 mg/dL (8.8-10.5)
[2018-09-14 07:30] LABS: GLUCOMETER DEV NAME(LOC) 5N.1; GLUCOSE,POINT OF CARE 150 MG/DL (70-110)
[2018-09-14 08:10] LABS: GLUCOMETER DEV NAME(LOC) 5S.1; GLUCOSE,POINT OF CARE 93 MG/DL (70-110)
[2018-09-14 08:23] VITALS: BP 147/81
[2018-09-14] MEDS: ASPIRIN 81 MG EC TABLET PO SCH (09:59)
[2018-09-14] MEDS: TICAGRELOR 60 MG TABLET PO SCH (09:59)
[2018-09-14] MEDS: ISOSORB DINIT/HYDRALAZINE HCL 20-37.5 MG TABLET PO SCH (09:59)
[2018-09-14] MEDS: DOCUSATE SODIUM 100 MG CAPSULE PO SCH (10:00)
[2018-09-14] MEDS: FAMOTIDINE 20 MG TABLET PO SCH (10:00)
[2018-09-14] MEDS: ATORVASTATIN CALCIUM 40 MG TABLET PO SCH (10:00)
[2018-09-14] MEDS: CARVEDILOL 6.25 MG TABLET PO SCH (10:00)
[2018-09-14] MEDS ORDERED: ISOS1TAB2 PO (11:15)
[2018-09-14] MEDS ORDERED: CARV6 PO (11:15)
[2018-09-14] MEDS ORDERED: TICA90TA PO (11:16)
[2018-09-14] MEDS ORDERED: ATOR40TA28 PO (11:16)
[2018-09-14 11:17] VITALS: BP 120/74
[2018-09-14] MEDS ORDERED: FAMO20 PO ×2 (11:17)
[2018-09-14 15:10] LABS: GLUCOMETER DEV NAME(LOC) 5S.1; GLUCOSE,POINT OF CARE 89 MG/DL (70-110)
== END 2018-09-14 12:45 | disposition home or self-care (01) | DRG 190 ==
LOC: EMS 09:33 → ICU 19:30 → 5S 09-13 19:36 → 5N 09-14 04:48
PROVIDERS: ADMIT Internal Medicine; ATTEND Internal Medicine
PROC: 5A1D70Z Performance of Urinary Filtration, Intermittent, Less than 6 Hours Per Day (ICD-10-PCS; 2018-09-11)
PROC: 4A023N7 Measurement of Cardiac Sampling and Pressure, Left Heart, Percutaneous Approach (ICD-10-PCS; principal; 2018-09-12)
PROC: B2111ZZ Fluoroscopy of Multiple Coronary Arteries using Low Osmolar Contrast (ICD-10-PCS; 2018-09-12)
PROC: B3101ZZ Fluoroscopy of Thoracic Aorta using Low Osmolar Contrast (ICD-10-PCS; 2018-09-12)
PROC: B2131ZZ Fluoroscopy of Multiple Coronary Artery Bypass Grafts using Low Osmolar Contrast (ICD-10-PCS; 2018-09-12)
PROC: B2151ZZ Fluoroscopy of Left Heart using Low Osmolar Contrast (ICD-10-PCS; 2018-09-12)
PROC: B41F1ZZ Fluoroscopy of Right Lower Extremity Arteries using Low Osmolar Contrast (ICD-10-PCS; 2018-09-12)
PROC: 5A1D70Z Performance of Urinary Filtration, Intermittent, Less than 6 Hours Per Day (ICD-10-PCS; 2018-09-12)
PROC: 5A1D70Z Performance of Urinary Filtration, Intermittent, Less than 6 Hours Per Day (ICD-10-PCS; 2018-09-13)
DX: I21.4 Non-ST elevation (NSTEMI) myocardial infarction (principal); I13.2 Hypertensive heart and chronic kidney disease with heart failure and with stage 5 chronic kidney disease, or end stage renal disease; R64 Cachexia; E46 Unspecified protein-calorie malnutrition; E87.2 Acidosis; E11.22 Type 2 diabetes mellitus with diabetic chronic kidney disease; E83.39 Other disorders of phosphorus metabolism; I25.810 Atherosclerosis of coronary artery bypass graft(s) without angina pectoris; E83.51 Hypocalcemia; N18.6 End stage renal disease; E87.5 Hyperkalemia; D63.8 Anemia in other chronic diseases classified elsewhere; N25.81 Secondary hyperparathyroidism of renal origin; I25.5 Ischemic cardiomyopathy; R62.7 Adult failure to thrive; I50.9 Heart failure, unspecified; I25.119 Atherosclerotic heart disease of native coronary artery with unspecified angina pectoris; E78.00 Pure hypercholesterolemia, unspecified; E78.5 Hyperlipidemia, unspecified; E87.1 Hypo-osmolality and hyponatremia; Z91.19 Patient's noncompliance with other medical treatment and regimen; Z82.49 Family history of ischemic heart disease and other diseases of the circulatory system; Z83.3 Family history of diabetes mellitus; Z91.15 Patient's noncompliance with renal dialysis; Z99.2 Dependence on renal dialysis; Z79.899 Other long term (current) drug therapy; Z95.1 Presence of aortocoronary bypass graft
CPT/HCPCS: 83735; 87081; 87340; 93005; 93306; 93459; 93567; 94640; 99291; G0378; J1644; J1815; J2150; J2250; J3010; J3490; J7030; Q9967

== ENCOUNTER 2020-03-15 00:54 | Inpatient (IN) | payer OTHER ==
[~2020-03-15] VITALS: Ht 167.6 cm; Wt 87.5 kg
[~2020-03-15 00:54] MED LIST changes: +AMLO-258 PO; +ASPI-728 PO; +ATOR40TA28 PO; +CARV6 PO; +FAMO20 PO; +ISOS1TAB2 PO; -LOSA50TA64 PO; +SEVE800T17 PO; +TICA90TA PO
[2020-03-15 01:47] LABS: BASOPHILS % (AUTO) 0.7 % (0.0-2.0); EOSINOPHILS % (AUTO) 0 % (1.0-6.0); HEMATOCRIT 40.1 % (41-53); HEMOGLOBIN 13.5 g/dL (13.5-17.5); LYMPHOCYTES # (AUTO) 0.4 K/uL (1.0-4.8); LYMPHOCYTES % (AUTO) 9.8 % (22.0-44.0); MEAN CORPUSCULAR HGB CONC 33.6 G/dL (31.0-37.0); MEAN CORPUSCULAR VOLUME 92 fL (80-100); MONOCYTES # (AUTO) 0.4 K/uL (0.1-1.0); MONOCYTES % (AUTO) 8.9 % (2.0-9.0); NEUTROPHILS # (AUTO) 3.7 K/uL (1.8-7.7); NEUTROPHILS % (AUTO) 80.6 % (40.0-70.0); PLATELET COUNT (AUTO) 114 K/uL (150-450); RED BLOOD CELL COUNT(AUTO) 4.36 MIL/uL (4.50-5.90); RED CELL DISTRIBUTION WIDTH 15.6 % (11.5-14.5)
[2020-03-15 01:56] LABS: CALCIUM, TOTAL 7.9 mg/dL (8.8-10.5); CREATININE 14.3 mg/dL (0.60-1.30); POTASSIUM 5.3 mmol/L (3.5-5.1)
[2020-03-15 02:20] LABS: ALBUMIN 3.1 g/dL (3.4-5.0); BILIRUBIN,TOTAL 0.8 mg/dL (0.1-1.0)
[2020-03-15 03:24] LABS: COVID AG,FIA SOURCE NASOPHARYNGEAL
[2020-03-15] MEDS ORDERED: DEXAMETHASONE SOD PHOS 4 MG/ML VIAL IVP ONE (04:00)
[2020-03-15 04:27] LABS: ABG A-A DIFF O2 224.4 mmHg (10-20.0); ABG BASE EXCESS -0.3 mmol/L (-2.0-3.0); ABG CARBOXYHEMOGLOBIN 1.2 % (0.0-1.5); ABG METHEMOGLOBIN 0.3 % (0.0-1.5); ABG OXYGEN CONTENT 18.3 mL/dL (15.0-23.0); ABG OXYGEN SATURATION 90.2 % (95.0-98.0); ABG OXYHEMOGLOBIN 88.8 % (94.0-100.0); ABG PCO2 30 mmHg (35-45); ABG PH 7.503 (7.35-7.450); ABG TOTAL HEMOGLOBIN 14.7 G/dL (12.0-18.0); PO2, ARTERIAL BG 55.4 mmHg (79.0-87.0); SOURCE, BLOOD GAS ARTERIAL; TEMPERATURE, FAHRENHEIT, BG 98.6 FAHREN (96.0-98.6)
[2020-03-15 04:28] LABS: O2 DEVICE,BLOOD GAS CANNULA (ROOM AIR); SITE, BLOOD GAS LFT RADIAL
[2020-03-15] MEDS ORDERED: ENOXAPARIN SODIUM 30 MG/0.3 ML PF SYRINGE SQ ONE (05:00)
[2020-03-15 05:45] LABS: MAGNESIUM 2.6 mg/dL (1.80-2.40)
[2020-03-15 07:00] LABS: PROTHROMBIN TIME 10.3 SEC (9.4-11.6)
[2020-03-15 07:46] LABS: D-DIMER 0.74 mg/L FEU (0.00-0.50)
[2020-03-15 10:17] VITALS: BP 138/77
[2020-03-15 11:40] VITALS: BP 143/79
[2020-03-15] MEDS ORDERED: AmLODIPine BESYLATE 10 MG TABLET PO SCH (15:15)
[2020-03-15 16:10] VITALS: BP 148/79
[2020-03-15] MEDS: FAMOTIDINE 20 MG TABLET PO SCH (16:33)
[2020-03-15] MEDS: ASPIRIN 81 MG CHEWABLE TABLET PO SCH (16:33)
[2020-03-15] MEDS: ISOSORB DINIT/HYDRALAZINE HCL 20-37.5 MG TABLET PO SCH ×2 (16:34→20:50)
[2020-03-15 20:00] VITALS: BP 109/63
[2020-03-15] MEDS: ATORVASTATIN CALCIUM 40 MG TABLET PO SCH (20:50)
[2020-03-15] MEDS: CARVEDILOL 6.25 MG TABLET PO SCH (20:50)
[2020-03-15] MEDS: TICAGRELOR 90 MG TABLET PO SCH (20:50)
[2020-03-15 23:45] VITALS: BP 92/55
[2020-03-16 04:06] VITALS: BP 100/51
[2020-03-16 08:14] VITALS: BP 131/72
[2020-03-16] MEDS: ZINC SULFATE 220 MG CAPSULE PO SCH (09:18)
[2020-03-16] MEDS: DEXAMETHASONE SOD PHOS 4 MG/ML VIAL IVP SCH (09:18)
[2020-03-16] MEDS: ASPIRIN 81 MG CHEWABLE TABLET PO SCH (09:18)
[2020-03-16] MEDS: FAMOTIDINE 20 MG TABLET PO SCH (09:19)
[2020-03-16] MEDS: CHOLECALCIFEROL (VIT D3) 2,000 UNITS [50 MCG] TABLET PO SCH (09:19)
[2020-03-16] MEDS: ASCORBIC ACID 500 MG TABLET PO SCH (09:19)
[2020-03-16] MEDS: CARVEDILOL 6.25 MG TABLET PO SCH ×2 (09:19→23:21)
[2020-03-16] MEDS: TICAGRELOR 90 MG TABLET PO SCH ×2 (09:19→23:21)
[2020-03-16] MEDS: ISOSORB DINIT/HYDRALAZINE HCL 20-37.5 MG TABLET PO SCH ×3 (09:19→23:20)
[2020-03-16] MEDS ORDERED: REMDESIVIR 200 MG in SODIUM CHLORIDE 0.9% 250 ML IV ONE (10:00)
[2020-03-16] MEDS ORDERED: SODIUM CHLORIDE 0.9% 250 ML IV ONE (10:29)
[2020-03-16 11:09] VITALS: BP 110/68
[2020-03-16 15:30] VITALS: BP 113/63
[2020-03-16 20:20] VITALS: BP 123/61
[2020-03-16] MEDS: ATORVASTATIN CALCIUM 40 MG TABLET PO SCH (23:20)
[2020-03-16] MEDS: HEPARIN SODIUM,PORCINE 5,000 UNITS/ML VIAL SQ SCH (23:22)
[2020-03-16 23:38] VITALS: BP 140/69
[2020-03-17] MEDS ORDERED: ACETAMINOPHEN 325 MG TABLET PO PRN (00:45)
[2020-03-17 04:02] VITALS: BP 137/71
[2020-03-17 08:12] LABS: ALBUMIN 2.7 g/dL (3.4-5.0); BILIRUBIN,TOTAL 0.6 mg/dL (0.1-1.0); CALCIUM, TOTAL 8.1 mg/dL (8.8-10.5); CREATININE 13.55 mg/dL (0.60-1.30); POTASSIUM 5.4 mmol/L (3.5-5.1); TOTAL PROTEIN, SERUM 7.5 g/dL (6.4-8.2)
[2020-03-17 08:50] VITALS: BP 124/70
[2020-03-17] MEDS: DEXAMETHASONE SOD PHOS 4 MG/ML VIAL IVP SCH (08:56)
[2020-03-17] MEDS: FAMOTIDINE 20 MG TABLET PO SCH (08:56)
[2020-03-17] MEDS: HEPARIN SODIUM,PORCINE 5,000 UNITS/ML VIAL SQ SCH ×2 (08:56→21:00)
[2020-03-17] MEDS: TICAGRELOR 90 MG TABLET PO SCH ×2 (08:56→21:00)
[2020-03-17] MEDS: ASCORBIC ACID 500 MG TABLET PO SCH (08:56)
[2020-03-17] MEDS: ISOSORB DINIT/HYDRALAZINE HCL 20-37.5 MG TABLET PO SCH ×3 (08:56→21:00)
[2020-03-17] MEDS: ZINC SULFATE 220 MG CAPSULE PO SCH (08:56)
[2020-03-17] MEDS: ASPIRIN 81 MG CHEWABLE TABLET PO SCH (08:57)
[2020-03-17] MEDS: CARVEDILOL 6.25 MG TABLET PO SCH ×2 (08:57→21:00)
[2020-03-17] MEDS: CHOLECALCIFEROL (VIT D3) 2,000 UNITS [50 MCG] TABLET PO SCH (08:57)
[2020-03-17] MEDS: REMDESIVIR 100 MG in SODIUM CHLORIDE 0.9% 250 ML IV SCH (10:29)
[2020-03-17 12:20] VITALS: BP 116/54
[2020-03-17 16:00] VITALS: BP 120/64
[2020-03-17] MEDS ORDERED: SODIUM CHLORIDE 0.9% 1,000 ML ONE (18:36)
[2020-03-17] MEDS ORDERED: DiphenhydrAMINE HCL 50 MG/ML VIAL IVP PRN (19:00)
[2020-03-17] MEDS ORDERED: MANNITOL 25%-12.5 GM/50 ML VIAL IVP PRN (19:00)
[2020-03-17 20:24] VITALS: BP 125/53
[2020-03-17] MEDS: ATORVASTATIN CALCIUM 40 MG TABLET PO SCH (21:00)
[2020-03-18 00:53] VITALS: BP 155/63
[2020-03-18 04:00] VITALS: BP 154/70
[2020-03-18 06:51] LABS: BASOPHILS % (AUTO) 0.2 % (0.0-2.0); EOSINOPHILS % (AUTO) 0 % (1.0-6.0); HEMATOCRIT 39.1 % (41-53); HEMOGLOBIN 13.3 g/dL (13.5-17.5); LYMPHOCYTES # (AUTO) 0.3 K/uL (1.0-4.8); LYMPHOCYTES % (AUTO) 3.5 % (22.0-44.0); MEAN CORPUSCULAR HEMOGLOBIN 31.8 pg (26.0-34.0); MEAN CORPUSCULAR VOLUME 94 fL (80-100); MONOCYTES # (AUTO) 0.6 K/uL (0.1-1.0); MONOCYTES % (AUTO) 6.1 % (2.0-9.0); NEUTROPHILS # (AUTO) 8.3 K/uL (1.8-7.7); PLATELET COUNT (AUTO) 173 K/uL (150-450); RED BLOOD CELL COUNT(AUTO) 4.18 MIL/uL (4.50-5.90); RED CELL DISTRIBUTION WIDTH 16.2 % (11.5-14.5)
[2020-03-18 07:02] LABS: NEUTROPHILS % (AUTO) 90.2 % (40.0-70.0)
[2020-03-18 07:24] VITALS: BP 138/71
[2020-03-18 07:59] LABS: ALBUMIN 2.7 g/dL (3.4-5.0); BILIRUBIN,TOTAL 0.7 mg/dL (0.1-1.0); C-REACTIVE PROTEIN QUANT 16.34 mg/dL (0.00-0.30); CALCIUM, TOTAL 9.3 mg/dL (8.8-10.5); CREATININE 9.61 mg/dL (0.60-1.30); POTASSIUM 5.5 mmol/L (3.5-5.1); TOTAL PROTEIN, SERUM 7.5 g/dL (6.4-8.2)
[2020-03-18] MEDS: FAMOTIDINE 20 MG TABLET PO SCH (08:29)
[2020-03-18] MEDS: TICAGRELOR 90 MG TABLET PO SCH ×2 (08:29→20:45)
[2020-03-18] MEDS: ZINC SULFATE 220 MG CAPSULE PO SCH (08:29)
[2020-03-18] MEDS: ASPIRIN 81 MG CHEWABLE TABLET PO SCH (08:29)
[2020-03-18] MEDS: HEPARIN SODIUM,PORCINE 5,000 UNITS/ML VIAL SQ SCH ×2 (08:29→20:45)
[2020-03-18] MEDS: DEXAMETHASONE SOD PHOS 4 MG/ML VIAL IVP SCH (08:29)
[2020-03-18] MEDS: ASCORBIC ACID 500 MG TABLET PO SCH (08:30)
[2020-03-18] MEDS: CARVEDILOL 6.25 MG TABLET PO SCH ×2 (08:30→20:45)
[2020-03-18] MEDS: CHOLECALCIFEROL (VIT D3) 2,000 UNITS [50 MCG] TABLET PO SCH (08:30)
[2020-03-18] MEDS: ISOSORB DINIT/HYDRALAZINE HCL 20-37.5 MG TABLET PO SCH ×3 (08:30→20:45)
[2020-03-18] MEDS ORDERED: LIDOCAINE/PF 1% 2 ML VIAL IV ONE (12:00)
[2020-03-18 12:43] VITALS: BP 128/59
[2020-03-18 15:45] VITALS: BP 118/65
[2020-03-18] MEDS ORDERED: DiphenhydrAMINE HCL 50 MG/ML VIAL IM ONE (16:47)
[2020-03-18] MEDS: REMDESIVIR 100 MG in SODIUM CHLORIDE 0.9% 250 ML IV SCH (17:11)
[2020-03-18 20:29] VITALS: BP 120/61
[2020-03-18] MEDS: ATORVASTATIN CALCIUM 40 MG TABLET PO SCH (20:45)
[2020-03-19 00:25] VITALS: BP 142/58
[2020-03-19 05:29] VITALS: BP 119/66
[2020-03-19 07:51] VITALS: BP 124/57
[2020-03-19 08:12] LABS: ALBUMIN 2.5 g/dL (3.4-5.0); CALCIUM, TOTAL 8.6 mg/dL (8.8-10.5); CREATININE 9.03 mg/dL (0.60-1.30); TOTAL PROTEIN, SERUM 7.2 g/dL (6.4-8.2)
[2020-03-19 08:19] LABS: C-REACTIVE PROTEIN QUANT 29.05 mg/dL (0.00-0.30)
[2020-03-19] MEDS: ZINC SULFATE 220 MG CAPSULE PO SCH (08:36)
[2020-03-19] MEDS: FAMOTIDINE 20 MG TABLET PO SCH (08:36)
[2020-03-19] MEDS: ASPIRIN 81 MG CHEWABLE TABLET PO SCH (08:36)
[2020-03-19] MEDS: HEPARIN SODIUM,PORCINE 5,000 UNITS/ML VIAL SQ SCH ×2 (08:36→21:17)
[2020-03-19] MEDS: CHOLECALCIFEROL (VIT D3) 2,000 UNITS [50 MCG] TABLET PO SCH (08:36)
[2020-03-19] MEDS: ISOSORB DINIT/HYDRALAZINE HCL 20-37.5 MG TABLET PO SCH ×3 (08:36→21:16)
[2020-03-19] MEDS: TICAGRELOR 90 MG TABLET PO SCH ×2 (08:36→21:16)
[2020-03-19] MEDS: CARVEDILOL 6.25 MG TABLET PO SCH ×2 (08:36→21:16)
[2020-03-19] MEDS: ASCORBIC ACID 500 MG TABLET PO SCH (08:36)
[2020-03-19] MEDS: DEXAMETHASONE SOD PHOS 4 MG/ML VIAL IVP SCH (08:37)
[2020-03-19] MEDS: REMDESIVIR 100 MG in SODIUM CHLORIDE 0.9% 250 ML IV SCH (10:31)
[2020-03-19 11:01] VITALS: BP 103/54
[2020-03-19 15:59] VITALS: BP 125/53
[2020-03-19 20:16] VITALS: BP 113/58
[2020-03-19] MEDS: ATORVASTATIN CALCIUM 40 MG TABLET PO SCH (21:16)
[2020-03-20] VITALS (7 sets, daily range): BP systolic 95–164; BP diastolic 49–85
[2020-03-20 07:57] LABS: ALBUMIN 2.2 g/dL (3.4-5.0); CALCIUM, TOTAL 8.4 mg/dL (8.8-10.5); CREATININE 11.09 mg/dL (0.60-1.30); POTASSIUM 5.9 mmol/L (3.5-5.1)
[2020-03-20] MEDS: CARVEDILOL 6.25 MG TABLET PO SCH ×2 (08:31→22:56)
[2020-03-20] MEDS: ASPIRIN 81 MG CHEWABLE TABLET PO SCH (08:32)
[2020-03-20] MEDS: CHOLECALCIFEROL (VIT D3) 2,000 UNITS [50 MCG] TABLET PO SCH (08:32)
[2020-03-20] MEDS: ASCORBIC ACID 500 MG TABLET PO SCH (08:32)
[2020-03-20] MEDS: TICAGRELOR 90 MG TABLET PO SCH ×2 (08:32→22:40)
[2020-03-20] MEDS: ISOSORB DINIT/HYDRALAZINE HCL 20-37.5 MG TABLET PO SCH ×3 (08:32→22:55)
[2020-03-20] MEDS: ZINC SULFATE 220 MG CAPSULE PO SCH (08:32)
[2020-03-20] MEDS: FAMOTIDINE 20 MG TABLET PO SCH (08:32)
[2020-03-20] MEDS: DEXAMETHASONE SOD PHOS 4 MG/ML VIAL IVP SCH (08:33)
[2020-03-20] MEDS: HEPARIN SODIUM,PORCINE 5,000 UNITS/ML VIAL SQ SCH ×2 (08:33→22:41)
[2020-03-20] MEDS: REMDESIVIR 100 MG in SODIUM CHLORIDE 0.9% 250 ML IV SCH (10:46)
[2020-03-20 12:01] LABS: C-REACTIVE PROTEIN QUANT 31.86 mg/dL (0.00-0.30)
[2020-03-20] MEDS ORDERED: FentaNYL CITRATE PF 100 MCG/2 ML VIAL ONE (14:00)
[2020-03-20] MEDS: MIDAZOLAM HCL 100 MG in DEXTROSE 5%-WATER 180 ML IV PRN ×2 (15:54→17:34)
[2020-03-20] MEDS: FentaNYL CIT 1000MCG/D5%-WATER 100 ML IV PRN ×2 (16:00→17:32)
[2020-03-20 16:59] LABS: ABG A-A DIFF O2 528.8 mmHg (10-20.0); ABG BASE EXCESS -4.8 mmol/L (-2.0-3.0); ABG METHEMOGLOBIN 0.3 % (0.0-1.5); ABG OXYGEN CONTENT 17.3 mL/dL (15.0-23.0); ABG OXYGEN SATURATION 97.6 % (95.0-98.0); ABG OXYHEMOGLOBIN 96.3 % (94.0-100.0); ABG PCO2 57 mmHg (35-45); ABG PH 7.221 (7.35-7.450); ABG TOTAL HEMOGLOBIN 12.6 G/dL (12.0-18.0); PO2, ARTERIAL BG 127.2 mmHg (79.0-87.0); SOURCE, BLOOD GAS ARTERIAL; TEMPERATURE, FAHRENHEIT, BG 98.6 FAHREN (96.0-98.6)
[2020-03-20 17:00] LABS: O2 DEVICE,BLOOD GAS VENTILATOR (ROOM AIR); SITE, BLOOD GAS LFT RADIAL; VT, ABG 450 ml
[2020-03-20 17:01] LABS: PEEP,BG 10 cm H2O
[2020-03-20] MEDS ORDERED: SODIUM CHLORIDE 0.9% 500 ML IV ONE (17:05)
[2020-03-20] MEDS: NOREPINEPHRINE 4 MG/D5%-WATER 250 ML IV PRN ×2 (17:28→21:21)
[2020-03-20] MEDS: PHENYLEPHRINE 200 MG/D5%-WATER 250 ML IV PRN (18:14)
[2020-03-20] MEDS: VASOPRESSIN 40 UNITS in DEXTROSE 5%-WATER 98 ML IV PRN (18:54)
[2020-03-20 20:49] LABS: GLUCOMETER DEV NAME(LOC) 5N.1B; GLUCOSE,POINT OF CARE 367 MG/DL (70-110)
[2020-03-20] MEDS: ATORVASTATIN CALCIUM 40 MG TABLET PO SCH (22:40)
[2020-03-21] VITALS (20 sets, daily range): BP systolic 101–174; BP diastolic 45–60
[2020-03-21 05:38] LABS: BASOPHILS % (AUTO) 0.2 % (0.0-2.0); EOSINOPHILS % (AUTO) 0 % (1.0-6.0); HEMATOCRIT 32.7 % (41-53); LYMPHOCYTES # (AUTO) 0.1 K/uL (1.0-4.8); LYMPHOCYTES % (AUTO) 1.7 % (22.0-44.0); MEAN CORPUSCULAR HEMOGLOBIN 31.5 pg (26.0-34.0); MEAN CORPUSCULAR HGB CONC 33.7 G/dL (31.0-37.0); MEAN CORPUSCULAR VOLUME 94 fL (80-100); MONOCYTES # (AUTO) 0.4 K/uL (0.1-1.0); MONOCYTES % (AUTO) 5.4 % (2.0-9.0); NEUTROPHILS # (AUTO) 7.6 K/uL (1.8-7.7); PLATELET COUNT (AUTO) 250 K/uL (150-450); RED BLOOD CELL COUNT(AUTO) 3.49 MIL/uL (4.50-5.90); RED CELL DISTRIBUTION WIDTH 16.6 % (11.5-14.5)
[2020-03-21 05:44] LABS: NEUTROPHILS % (AUTO) 92.7 % (40.0-70.0)
[2020-03-21] MEDS: NOREPINEPHRINE 4 MG/D5%-WATER 250 ML IV PRN ×2 (06:23→22:46)
[2020-03-21 06:25] LABS: ALBUMIN 2.4 g/dL (3.4-5.0); BILIRUBIN,TOTAL 1.3 mg/dL (0.1-1.0); C-REACTIVE PROTEIN QUANT 20.85 mg/dL (0.00-0.30); CREATININE 7.68 mg/dL (0.60-1.30); TOTAL PROTEIN, SERUM 6.7 g/dL (6.4-8.2)
[2020-03-21] MEDS: MIDAZOLAM HCL 100 MG in DEXTROSE 5%-WATER 180 ML IV PRN (08:12)
[2020-03-21] MEDS: ISOSORB DINIT/HYDRALAZINE HCL 20-37.5 MG TABLET PO SCH ×3 (08:26→22:05)
[2020-03-21] MEDS: CARVEDILOL 6.25 MG TABLET PO SCH ×2 (08:27→22:05)
[2020-03-21] MEDS: DEXAMETHASONE SOD PHOS 4 MG/ML VIAL IVP SCH (09:11)
[2020-03-21] MEDS: ZINC SULFATE 220 MG CAPSULE PO SCH (09:12)
[2020-03-21] MEDS: ASPIRIN 81 MG CHEWABLE TABLET PO SCH (09:12)
[2020-03-21] MEDS: TICAGRELOR 90 MG TABLET PO SCH ×2 (09:12→22:04)
[2020-03-21] MEDS: ASCORBIC ACID 500 MG TABLET PO SCH (09:12)
[2020-03-21] MEDS: HEPARIN SODIUM,PORCINE 5,000 UNITS/ML VIAL SQ SCH ×2 (09:12→22:05)
[2020-03-21] MEDS: CHOLECALCIFEROL (VIT D3) 2,000 UNITS [50 MCG] TABLET PO SCH (09:13)
[2020-03-21] MEDS: FAMOTIDINE 20 MG TABLET PO SCH (09:13)
[2020-03-21 09:17] LABS: ABG A-A DIFF O2 517.8 mmHg (10-20.0); ABG BASE EXCESS 2.4 mmol/L (-2.0-3.0); ABG CARBOXYHEMOGLOBIN 0.8 % (0.0-1.5); ABG METHEMOGLOBIN 0.3 % (0.0-1.5); ABG OXYGEN CONTENT 15.5 mL/dL (15.0-23.0); ABG OXYGEN SATURATION 94.6 % (95.0-98.0); ABG OXYHEMOGLOBIN 93.6 % (94.0-100.0); ABG PCO2 49 mmHg (35-45); ABG PH 7.373 (7.35-7.450); ABG TOTAL HEMOGLOBIN 11.7 G/dL (12.0-18.0); PO2, ARTERIAL BG 74.1 mmHg (79.0-87.0); SOURCE, BLOOD GAS ARTERIAL; TEMPERATURE, FAHRENHEIT, BG 98.6 FAHREN (96.0-98.6)
[2020-03-21 09:18] LABS: O2 DEVICE,BLOOD GAS VENTILATOR (ROOM AIR); PEEP,BG 10 cm H2O; SITE, BLOOD GAS ARTERIAL LINE; VT, ABG 450 ml
[2020-03-21] MEDS: VASOPRESSIN 40 UNITS in DEXTROSE 5%-WATER 98 ML IV PRN (10:07)
[2020-03-21] MEDS: FentaNYL CIT 1000MCG/D5%-WATER 100 ML IV PRN (15:13)
[2020-03-21] MEDS ORDERED: DEXTROSE 50%-WATER 25 GM/50 ML SYRINGE IVP PRN (16:30)
[2020-03-21] MEDS: INSULIN LISPRO 100 UNITS/ML SQ PRN ×2 (17:41→21:55)
[2020-03-21 17:44] LABS: GLUCOMETER DEV NAME(LOC) AHU.; GLUCOSE,POINT OF CARE 398 MG/DL (70-110)
[2020-03-21 21:44] LABS: GLUCOMETER DEV NAME(LOC) AHU.; GLUCOSE,POINT OF CARE 176 MG/DL (70-110)
[2020-03-21] MEDS: ATORVASTATIN CALCIUM 40 MG TABLET PO SCH (22:05)
[2020-03-22] VITALS (25 sets, daily range): BP systolic 85–170; BP diastolic 34–72
[2020-03-22] MEDS: PROPOFOL 1000 MG/ISO-OSM 100 ML IV PRN (00:16)
[2020-03-22] MEDS: FentaNYL CIT 1000MCG/D5%-WATER 100 ML IV PRN ×2 (00:20→11:58)
[2020-03-22] MEDS: MIDAZOLAM HCL 100 MG in DEXTROSE 5%-WATER 180 ML IV PRN ×2 (02:15→09:57)
[2020-03-22] MEDS: NOREPINEPHRINE 4 MG/D5%-WATER 250 ML IV PRN ×5 (04:32→19:04)
[2020-03-22 06:02] LABS: GLUCOMETER DEV NAME(LOC) AHU.; GLUCOSE,POINT OF CARE 226 MG/DL (70-110)
[2020-03-22 06:05] LABS: ALBUMIN 2.3 g/dL (3.4-5.0); CALCIUM, TOTAL 7.9 mg/dL (8.8-10.5); CREATININE 6.42 mg/dL (0.60-1.30); POTASSIUM 4.7 mmol/L (3.5-5.1); TOTAL PROTEIN, SERUM 6.9 g/dL (6.4-8.2)
[2020-03-22 06:27] LABS: C-REACTIVE PROTEIN QUANT 30.35 mg/dL (0.00-0.30)
[2020-03-22] MEDS: INSULIN LISPRO 100 UNITS/ML SQ PRN ×2 (07:10→18:35)
[2020-03-22 08:45] LABS: ABG A-A DIFF O2 617.6 mmHg (10-20.0); ABG CARBOXYHEMOGLOBIN 1.3 % (0.0-1.5); ABG HCO3 27.8 mmol/L (22.0-26.0); ABG METHEMOGLOBIN 0.3 % (0.0-1.5); ABG OXYGEN CONTENT 13.2 mL/dL (15.0-23.0); ABG OXYHEMOGLOBIN 78.9 % (94.0-100.0); ABG PCO2 49 mmHg (35-45); ABG PH 7.399 (7.35-7.450); ABG TOTAL HEMOGLOBIN 11.9 G/dL (12.0-18.0); PO2, ARTERIAL BG 46.1 mmHg (79.0-87.0); SOURCE, BLOOD GAS ARTERIAL; TEMPERATURE, FAHRENHEIT, BG 98.6 FAHREN (96.0-98.6)
[2020-03-22] MEDS: ISOSORB DINIT/HYDRALAZINE HCL 20-37.5 MG TABLET PO SCH ×3 (09:00→21:00)
[2020-03-22] MEDS: CARVEDILOL 6.25 MG TABLET PO SCH ×2 (09:00→21:00)
[2020-03-22 09:20] LABS: ABG OXYGEN SATURATION 80.2 % (95.0-98.0); O2 DEVICE,BLOOD GAS VENTILATOR (ROOM AIR); SITE, BLOOD GAS ARTERIAL LINE; VENT MODE, BG Press. Control Vent (ROOM AIR)
[2020-03-22 09:21] LABS: INSPIRATORY TIME, BG 0.8 SEC; PEEP,BG 12 cm H2O; VT, ABG 525 ml
[2020-03-22] MEDS: HEPARIN SODIUM,PORCINE 5,000 UNITS/ML VIAL SQ SCH ×2 (09:34→22:10)
[2020-03-22] MEDS: TICAGRELOR 90 MG TABLET PO SCH ×2 (09:34→21:00)
[2020-03-22] MEDS: ASCORBIC ACID 500 MG TABLET PO SCH (09:34)
[2020-03-22] MEDS: CHOLECALCIFEROL (VIT D3) 2,000 UNITS [50 MCG] TABLET PO SCH (09:34)
[2020-03-22] MEDS: FAMOTIDINE 20 MG TABLET PO SCH (09:34)
[2020-03-22] MEDS: ASPIRIN 81 MG CHEWABLE TABLET PO SCH (09:34)
[2020-03-22] MEDS: DEXAMETHASONE SOD PHOS 4 MG/ML VIAL IVP SCH (09:34)
[2020-03-22] MEDS: ZINC SULFATE 220 MG CAPSULE PO SCH (09:35)
[2020-03-22] MEDS ORDERED: VANCOMYCIN HCL 1 GM/D5% WATER 200 ML IV PRN (10:45)
[2020-03-22] MEDS ORDERED: PIPERACILLIN SODIUM/TAZOBACTAM 0.75 GM in DEXTROSE 5%-WATER 50 ML IV PRN (10:45)
[2020-03-22] MEDS ORDERED: PIPERACILLIN SODIUM/TAZOBACTAM 2.25 GM in DEXTROSE 5%-WATER 50 ML IV SCH (11:00)
[2020-03-22] MEDS ORDERED: DOPamine HCL 400 MG/D5%-WATER 250 ML IV ONE (11:00)
[2020-03-22] MEDS: DOPamine HCL 400 MG/D5%-WATER 250 ML IV PRN ×3 (11:45→19:43)
[2020-03-22] MEDS: PIPERACILLIN SODIUM/TAZOBACTAM 2.25 GM in DEXTROSE 5%-WATER 50 ML IV SCH (11:57)
[2020-03-22] MEDS ORDERED: VANCOMYCIN HCL 1 GM/D5% WATER 200 ML IV ONE (13:00)
[2020-03-22 13:15] LABS: ABG A-A DIFF O2 511.2 mmHg (10-20.0); ABG BASE EXCESS 8.3 mmol/L (-2.0-3.0); ABG CARBOXYHEMOGLOBIN 1.2 % (0.0-1.5); ABG HCO3 27.8 mmol/L (22.0-26.0); ABG METHEMOGLOBIN 0.3 % (0.0-1.5); ABG OXYGEN CONTENT 13.9 mL/dL (15.0-23.0); ABG TOTAL HEMOGLOBIN 12.5 G/dL (12.0-18.0); PO2, ARTERIAL BG 62.1 mmHg (79.0-87.0); SOURCE, BLOOD GAS ARTERIAL; TEMPERATURE, FAHRENHEIT, BG 98.6 FAHREN (96.0-98.6)
[2020-03-22 13:18] LABS: GLUCOMETER DEV NAME(LOC) AHU.; GLUCOSE,POINT OF CARE 198 MG/DL (70-110)
[2020-03-22 13:28] LABS: ABG OXYGEN SATURATION 80.2 % (95.0-98.0); ABG PCO2 140 mmHg (35-45); ABG PH 7.059 (7.35-7.450); O2 DEVICE,BLOOD GAS VENTILATOR (ROOM AIR); PEEP,BG 15 cm H2O; SITE, BLOOD GAS LFT RADIAL; VENT MODE, BG Press. Control Vent (ROOM AIR); VT, ABG 360 ml
[2020-03-22] MEDS: PHENYLEPHRINE 200 MG/D5%-WATER 250 ML IV PRN (14:20)
[2020-03-22 15:56] LABS: ABG A-A DIFF O2 583.3 mmHg (10-20.0); ABG BASE EXCESS 1.8 mmol/L (-2.0-3.0); ABG CARBOXYHEMOGLOBIN 1.2 % (0.0-1.5); ABG HCO3 24.2 mmol/L (22.0-26.0); ABG METHEMOGLOBIN 0.3 % (0.0-1.5); ABG OXYGEN CONTENT 13.9 mL/dL (15.0-23.0); ABG OXYGEN SATURATION 81.3 % (95.0-98.0); ABG OXYHEMOGLOBIN 80.1 % (94.0-100.0); ABG PCO2 76 mmHg (35-45); ABG PH 7.209 (7.35-7.450); ABG TOTAL HEMOGLOBIN 12.3 G/dL (12.0-18.0); O2 DEVICE,BLOOD GAS VENTILATOR (ROOM AIR); PEEP,BG 15 cm H2O; PO2, ARTERIAL BG 53.6 mmHg (79.0-87.0); SITE, BLOOD GAS ARTERIAL LINE; SOURCE, BLOOD GAS ARTERIAL; TEMPERATURE, FAHRENHEIT, BG 98.6 FAHREN (96.0-98.6); VENT MODE, BG Press. Control Vent (ROOM AIR); VT, ABG 380 ml
[2020-03-22] MEDS: VASOPRESSIN 40 UNITS in DEXTROSE 5%-WATER 98 ML IV PRN (18:10)
[2020-03-22 18:42] LABS: GLUCOMETER DEV NAME(LOC) AHU.; GLUCOSE,POINT OF CARE 248 MG/DL (70-110)
[2020-03-22] MEDS: ATORVASTATIN CALCIUM 40 MG TABLET PO SCH (21:00)
[2020-03-22] MEDS ORDERED: NOREPINEPHRINE BITARTRATE 8 MG in DEXTROSE 5%-WATER 242 ML IV PRN (21:15)
[2020-03-23] MEDS: PIPERACILLIN SODIUM/TAZOBACTAM 2.25 GM in DEXTROSE 5%-WATER 50 ML IV SCH (00:50)
[2020-03-23] MEDS: MIDAZOLAM HCL 100 MG in DEXTROSE 5%-WATER 180 ML IV PRN (00:55)
[2020-03-23 01:16] LABS: GLUCOMETER DEV NAME(LOC) AHU.; GLUCOSE,POINT OF CARE 293 MG/DL (70-110)
[2020-03-23] MEDS: FentaNYL CIT 1000MCG/D5%-WATER 100 ML IV PRN (01:20)
[2020-03-23] MEDS: PHENYLEPHRINE 200 MG/D5%-WATER 250 ML IV PRN (01:20)
[2020-03-23] MEDS: PROPOFOL 1000 MG/ISO-OSM 100 ML IV PRN (01:22)
[2020-03-23] MEDS: DOPamine HCL 400 MG/D5%-WATER 250 ML IV PRN (02:19)
[2020-03-23 04:00] VITALS: BP 118/49
[2020-03-23 05:48] LABS: BASOPHILS % (AUTO) 0.3 % (0.0-2.0); EOSINOPHILS % (AUTO) 0 % (1.0-6.0); HEMATOCRIT 34.4 % (41-53); LYMPHOCYTES # (AUTO) 0.4 K/uL (1.0-4.8); LYMPHOCYTES % (AUTO) 2.1 % (22.0-44.0); MEAN CORPUSCULAR HEMOGLOBIN 30.9 pg (26.0-34.0); MEAN CORPUSCULAR VOLUME 97 fL (80-100); MONOCYTES # (AUTO) 0.2 K/uL (0.1-1.0); MONOCYTES % (AUTO) 1.2 % (2.0-9.0); NEUTROPHILS # (AUTO) 16.4 K/uL (1.8-7.7); NEUTROPHILS % (AUTO) 96.4 % (40.0-70.0); PLATELET COUNT (AUTO) 132 K/uL (150-450); RED BLOOD CELL COUNT(AUTO) 3.57 MIL/uL (4.50-5.90); RED CELL DISTRIBUTION WIDTH 17.2 % (11.5-14.5)
[2020-03-23 06:18] LABS: ALBUMIN 1.8 g/dL (3.4-5.0); BILIRUBIN,TOTAL 4.9 mg/dL (0.1-1.0); CALCIUM, TOTAL 7.2 mg/dL (8.8-10.5); CREATININE 8.1 mg/dL (0.60-1.30); TOTAL PROTEIN, SERUM 6.5 g/dL (6.4-8.2)
[2020-03-23 06:48] LABS: POTASSIUM 7.3 mmol/L (3.5-5.1)
[2020-03-23 06:49] LABS: C-REACTIVE PROTEIN QUANT 35.37 mg/dL (0.00-0.30)
[2020-03-23] MEDS ORDERED: CALCIUM GLUCONATE 100 MG/ML 10 ML IVP ONE (07:00)
[2020-03-23] MEDS ORDERED: SODIUM BICARBONATE [ADULT] 8.4% 50 MEQ/50 ML SYRINGE IVP ONE (07:00)
[2020-03-23] MEDS ORDERED: ALBUTEROL SULFATE 2.5 MG/0.5 ML NEB SOLUTION NEB ONE ×2 (07:00→07:30)
[2020-03-23] MEDS ORDERED: SODIUM ZIRCONIUM CYCLOSILICATE 5 GM POWDER PACKET PO ONE (08:00)
== END 2020-03-23 14:30 | DRG 720 ==
LOC: EMS 00:59 → 5N 04:00 → AHU 03-20 14:10 → ICUN 03-20 14:21 → ICU 03-23 01:00
PROVIDERS: ADMIT Hospitalist; ATTEND Hospitalist
PROC: XW033E5 Introduction of Remdesivir Anti-infective into Peripheral Vein, Percutaneous Approach, New Technology Group 5 (ICD-10-PCS; 2020-03-16)
PROC: 5A1D70Z Performance of Urinary Filtration, Intermittent, Less than 6 Hours Per Day (ICD-10-PCS; 2020-03-16)
PROC: 5A1D70Z Performance of Urinary Filtration, Intermittent, Less than 6 Hours Per Day (ICD-10-PCS; 2020-03-17)
PROC: 5A1D70Z Performance of Urinary Filtration, Intermittent, Less than 6 Hours Per Day (ICD-10-PCS; 2020-03-18)
PROC: 5A1945Z Respiratory Ventilation, 24-96 Consecutive Hours (ICD-10-PCS; principal; 2020-03-20)
PROC: 0BH17EZ Insertion of Endotracheal Airway into Trachea, Via Natural or Artificial Opening (ICD-10-PCS; 2020-03-20)
PROC: 5A12012 Performance of Cardiac Output, Single, Manual (ICD-10-PCS; 2020-03-20)
PROC: 06HY33Z Insertion of Infusion Device into Lower Vein, Percutaneous Approach (ICD-10-PCS; 2020-03-20)
PROC: B54BZZA Ultrasonography of Right Lower Extremity Veins, Guidance (ICD-10-PCS; 2020-03-20)
PROC: 04HY32Z Insertion of Monitoring Device into Lower Artery, Percutaneous Approach (ICD-10-PCS; 2020-03-20)
PROC: 4A133B1 Monitoring of Arterial Pressure, Peripheral, Percutaneous Approach (ICD-10-PCS; 2020-03-20)
PROC: 4A133J1 Monitoring of Arterial Pulse, Peripheral, Percutaneous Approach (ICD-10-PCS; 2020-03-20)
PROC: 5A1D70Z Performance of Urinary Filtration, Intermittent, Less than 6 Hours Per Day (ICD-10-PCS; 2020-03-20)
PROC: 06HY33Z Insertion of Infusion Device into Lower Vein, Percutaneous Approach (ICD-10-PCS; 2020-03-21)
PROC: 5A1D70Z Performance of Urinary Filtration, Intermittent, Less than 6 Hours Per Day (ICD-10-PCS; 2020-03-21)
PROC: 5A2204Z Restoration of Cardiac Rhythm, Single (ICD-10-PCS; 2020-03-23)
PROC: 5A1D90Z Performance of Urinary Filtration, Continuous, Greater than 18 hours Per Day (ICD-10-PCS; 2020-03-23)
DX: A41.89 Other specified sepsis (principal); U07.1 COVID-19; I13.11 Hypertensive heart and chronic kidney disease without heart failure, with stage 5 chronic kidney disease, or end stage renal disease; N18.6 End stage renal disease; J12.82 Pneumonia due to coronavirus disease 2019; D63.1 Anemia in chronic kidney disease; E11.22 Type 2 diabetes mellitus with diabetic chronic kidney disease; E43 Unspecified severe protein-calorie malnutrition; D72.810 Lymphocytopenia; R65.21 Severe sepsis with septic shock; E78.00 Pure hypercholesterolemia, unspecified; E78.5 Hyperlipidemia, unspecified; E83.39 Other disorders of phosphorus metabolism; E83.51 Hypocalcemia; E87.1 Hypo-osmolality and hyponatremia; E87.4 Mixed disorder of acid-base balance; E87.5 Hyperkalemia; I25.10 Atherosclerotic heart disease of native coronary artery without angina pectoris; I46.9 Cardiac arrest, cause unspecified; I47.2 Ventricular tachycardia; J80 Acute respiratory distress syndrome; K72.00 Acute and subacute hepatic failure without coma; N25.81 Secondary hyperparathyroidism of renal origin; R00.1 Bradycardia, unspecified; F41.9 Anxiety disorder, unspecified; R74.8 Abnormal levels of other serum enzymes; R62.7 Adult failure to thrive; Z82.49 Family history of ischemic heart disease and other diseases of the circulatory system; Z83.3 Family history of diabetes mellitus; Z91.15 Patient's noncompliance with renal dialysis; Z91.19 Patient's noncompliance with other medical treatment and regimen; Z95.1 Presence of aortocoronary bypass graft; Z99.11 Dependence on respirator [ventilator] status; Z99.2 Dependence on renal dialysis; Z79.899 Other long term (current) drug therapy; Z79.82 Long term (current) use of aspirin; Z68.31 Body mass index [BMI] 31.0-31.9, adult; Z91.14 Patient's other noncompliance with medication regimen
CPT/HCPCS: 36600; 82728; 82805; 83615; 83735; 85379; 85651; 86140; 87040; 87081; 87205; 87340; 87426; 92950; 93005; 94002; 94003; 99291; A9575; G0378; J0610; J1100; J1200; J1265; J1644; J1650; J2250; J2370; J2543; J2704; J3010; J3370; J3490; J7030; J7040; J7050; J7060; 36415-L1; 36415-TC; 71045-TC; 82803-TC; J7613; U0003